=== PATIENT | female | born 1995 | race African-American/Black ===

== ENCOUNTER 2018-12-08 11:44 | Emergency (ER) | payer OTHER ==
[~2018-12-08] VITALS: Ht 165.1 cm; Wt 74.8 kg
[2018-12-08 11:54] VITALS: BP 134/88
--- NOTE | 2018-12-08 12:51 | NUR ---
PT SIGNED WAIVER FOR IMAGING
== END 2018-12-08 14:40 | disposition home or self-care (01) ==
LOC: ER 11:46
DX: R04.2 Hemoptysis (principal)
CPT/HCPCS: 71045-TC